=== PATIENT | female | born 1990 | race African-American/Black ===

== ENCOUNTER 2017-12-07 16:20 | Emergency (ER) | payer BC ==
[2017-12-07] MEDS ORDERED: Sodium Chloride 0.9% 10 ML Syringe FLUSH PRN (16:27)
[2017-12-07] MEDS ORDERED: Sodium Chloride 0.9% 2.5 ML Syringe FLUSH PRN (16:27)
[2017-12-07 17:26] LABS: CHLORIDE,CL 106 mmol/L (98-107); SODIUM,NA 140 mmol/L (136-145)
--- NOTE | 2017-12-07 18:46 | EDM.PDOC ---
<Kandis Wei - Last Filed: 12/07/17 19:25> ED HPI GENERAL MEDICAL PROBLEM - General Chief Complaint: Chest Pain Stated Complaint: CHEST PAIN Time Seen by Provider: 12/07/17 16:20 - History of Present Illness INITIAL COMMENTS - FREE TEXT/NARRATIVE: This is Dr. Wei dictating an addendum note as I have assumed care of this case at 7 PM. I was asked to follow-up at the CTA of the chest because the patient had a slightly positive d-dimer. That CTA is negative for any pulmonary disease including pulmonary embolism. I relayed this information to the patient and have reassured her and encouraged her for follow-up with a provider in the clinic for further care and evaluation if this pain continues or even involves. She states understanding. I will give her appropriate referrals. For the history and physical on this case please see above dictation for Dr. Adhikari - Related Data Allergies Allergy/AdvReac Type Severity Reaction Status Date / Time No Known Allergies Allergy Verified 12/07/17 16:32 Home Meds: Home Meds Non-Formulary Medication [NF Drug] 1 each PO DAILY 12/07/17 [History] ED ROS GENERAL - Review of Systems Review Of Systems: ROS reveals no pertinent complaints other than HPI. ED EXAM, GENERAL - Physical Exam Exam: See Below (See dictation) Course - Vital Signs Last Recorded V/S: Last Vital Signs Temp 97.7 F 12/07/17 19:40 Pulse 78 12/07/17 19:40 Resp 18 12/07/17 19:40 BP 136/89 12/07/17 19:40 Pulse Ox 98 12/07/17 19:40 - Orders/Labs/Meds Orders: Active Orders 24 hr Category Date Time Status EKG Documentation Completion [RC] STAT Care 12/07/17 16:27 Active Ang Chest [CT] Stat Exams 12/07/17 18:27 Taken Chest 1V Frontal [CR] Stat Exams 12/07/17 16:28 Taken Saline Lock Insert [OM.PC] Stat Oth 12/07/17 16:27 Ordered Labs: Laboratory Tests 12/07/17 12/07/17 12/07/17 Range/Units 16:42 16:42 16:42 WBC 6.94 (4.0-11.0) K/uL RBC 4.54 (4.30-5.90) M/uL Hgb 12.4 (12.0-16.0) g/dL Hct 37.0 (36.0-46.0) % MCV 81.5 (80.0-98.0) fL MCH 27.3 (27.0-32.0) pg MCHC 33.5 (31.0-37.0) g/dL RDW Std Deviation 41.1 (28.0-62.0) fl RDW Coeff of Dm 14 (11.0-15.0) % Plt Count 208 (150-400) K/uL MPV 10.10 (7.40-12.00) fL Neut % (Auto) 53.7 (48.0-80.0) % Lymph % (Auto) 40.6 H (16.0-40.0) % [place] % (Auto) 4.9 (0.0-15.0) % Eos % (Auto) 0.7 (0.0-7.0) % Baso % (Auto) 0.1 (0.0-1.5) % Neut # (Auto) 3.7 (1.4-5.7) K/uL Lymph # (Auto) 2.8 H (0.6-2.4) K/uL [place] # (Auto) 0.3 (0.0-0.8) K/uL Eos # (Auto) 0.1 (0.0-0.7) K/uL Baso # (Auto) 0.0 (0.0-0.1) K/uL Nucleated RBC % 0.0 /100WBC Nucleated RBCs # 0 K/uL D-Dimer, Quantitative 0.67 H (0.0-0.52) mg/LFEU Sodium 140 (136-145) mmol/L Potassium 3.7 (3.5-5.1) mmol/L Chloride 106 (98-107) mmol/L Carbon Dioxide 23.3 (21.0-32.0) mmol/L BUN 11 (7.0-18.0) mg/dL Creatinine 0.7 (0.6-1.0) mg/dL Est Cr Clr Drug Dosing 126.16 mL/min Estimated GFR (MDRD) > 60.0 ml/min Glucose 92 (74-106) mg/dL Calcium 9.0 (8.5-10.1) mg/dL Total Bilirubin 0.2 (0.2-1.0) mg/dL AST 23 (15-37) IU/L ALT 32 (14-63) IU/L Alkaline Phosphatase 73 (46-116) U/L Troponin I < 0.050 (0.000-0.056) ng/mL Total Protein 7.7 (6.4-8.2) g/dL Albumin 3.7 (3.4-5.0) g/dL Globulin 4.0 H (2.0-3.5) g/dL Albumin/Globulin Ratio 0.9 L (1.3-2.8) Lipase 185 (73-393) U/L Urine HCG, Qual (NEGATIVE) 12/07/17 Range/Units 16:42 WBC (4.0-11.0) K/uL RBC (4.30-5.90) M/uL Hgb (12.0-16.0) g/dL Hct (36.0-46.0) % MCV (80.0-98.0) fL MCH (27.0-32.0) pg MCHC (31.0-37.0) g/dL RDW Std Deviation (28.0-62.0) fl RDW Coeff of Dm (11.0-15.0) % Plt Count (150-400) K/uL MPV (7.40-12.00) fL Neut % (Auto) (48.0-80.0) % Lymph % (Auto) (16.0-40.0) % [place] % (Auto) (0.0-15.0) % Eos % (Auto) (0.0-7.0) % Baso % (Auto) (0.0-1.5) % Neut # (Auto) (1.4-5.7) K/uL Lymph # (Auto) (0.6-2.4) K/uL [place] # (Auto) (0.0-0.8) K/uL Eos # (Auto) (0.0-0.7) K/uL Baso # (Auto) (0.0-0.1) K/uL Nucleated RBC % /100WBC Nucleated RBCs # K/uL D-Dimer, Quantitative (0.0-0.52) mg/LFEU Sodium (136-145) mmol/L Potassium (3.5-5.1) mmol/L Chloride (98-107) mmol/L Carbon Dioxide (21.0-32.0) mmol/L BUN (7.0-18.0) mg/dL Creatinine (0.6-1.0) mg/dL Est Cr Clr Drug Dosing mL/min Estimated GFR (MDRD) ml/min Glucose (74-106) mg/dL Calcium (8.5-10.1) mg/dL Total Bilirubin (0.2-1.0) mg/dL AST (15-37) IU/L ALT (14-63) IU/L Alkaline Phosphatase (46-116) U/L Troponin I (0.000-0.056) ng/mL Total Protein (6.4-8.2) g/dL Albumin (3.4-5.0) g/dL Globulin (2.0-3.5) g/dL Albumin/Globulin Ratio (1.3-2.8) Lipase (73-393) U/L Urine HCG, Qual NEGATIVE (NEGATIVE) Meds: Medications Discontinued Medications Generic Name Dose Route Start Last Admin Trade Name Freq PRN Reason Stop Dose Admin Iopamidol 50 ml 12/07/17 18:56 12/07/17 18:57 Isovue-370 (76%) IV 12/07/17 18:57 50 ml ONETIME STA Administration Sodium Chloride 10 ml 12/07/17 16:27 Saline Flush FLUSH ASDIRECTED PRN Keep Vein Open Sodium Chloride 2.5 ml 12/07/17 16:27 Saline Flush FLUSH ASDIRECTED PRN Keep Vein Open Departure - Departure Time of Disposition: 19:28 Disposition: Still A Patient 30 Condition: Good Clinical Impression: Chest wall pain Instructions: Chest Wall Pain, [id number] Referrals: PCP,None [Primary Care Provider] - Forms: ED Department Discharge Additional Instructions: The following information is given to patients seen in the emergency department who are being discharged to home. This information is to outline your options for follow-up care. We provide all patients seen in our emergency department with a follow-up referral. The need for follow-up, as well as the timing and circumstances, are variable depending upon the specifics of your emergency department visit. If you don't have a primary care physician on staff, we will provide you with a referral. We always advise you to contact your personal physician following an emergency department visit to inform them of the circumstance of the visit and for follow-up with them and/or the need for any referrals to a consulting specialist. The emergency department will also refer you to a specialist when appropriate. This referral assures that you have the opportunity for followup care with a specialist. All of these measure are taken in an effort to provide you with optimal care, which includes your followup. Under all circumstances we always encourage you to contact your private physician who remains a resource for coordinating your care. When calling for followup care, please make the office aware that this follow-up is from your recent emergency room visit. If for any reason you are refused follow-up, please contact the emergency department at and ask to speak to the emergency department charge nurse. [facility] Primary care- Internal Medicine [place] [address] Rest and use alcq-sxa-chewchr medications such as ibuprofen or Tylenol for pain. Please call and schedule a follow-up clinic appointment with one of our providers for further care and evaluation and return to ER as needed and as discussed. - My Orders Last 24 Hours: My Active Orders 12/07/17 16:27 EKG Documentation Completion [RC] STAT Saline Lock Insert [OM.PC] Stat 12/07/17 16:28 Chest 1V Frontal [CR] Stat 12/07/17 18:27 Ang Chest [CT] Stat - Assessment/Plan Last 24 Hours: My Active Orders 12/07/17 16:27 EKG Documentation Completion [RC] STAT Saline Lock Insert [OM.PC] Stat 12/07/17 16:28 Chest 1V Frontal [CR] Stat 12/07/17 18:27 Ang Chest [CT] Stat <Cris Adhikari - Last Filed: 12/08/17 10:24> ED HPI GENERAL MEDICAL PROBLEM - General Source of Information: Reports: Patient History Limitations: Reports: No Limitations - History of Present Illness INITIAL COMMENTS - FREE TEXT/NARRATIVE: History of present illness: []Patient has had 3 days of pressure type chest pain with shortness of breath lasting all day. She denies any dizziness, sweatiness or lightheadedness. She has not had any recent illnesses denies any fever chills cough or abdominal pain. Patient does not have a history of heart disease and has not had this pain in the past. She does have GERD but states it has never been this bad. Review of systems: As per history of present illness and below otherwise all systems reviewed and negative. Past medical history: As per history of present illness and as reviewed below otherwise noncontributory. Surgical history: As per history of present illness and as reviewed below otherwise noncontributory. Social history: No reported history of drug or alcohol abuse. Family history: As per history of present illness and as reviewed below otherwise noncontributory. Physical exam: General: Well developed, well nourished in NAD HEENT: Atraumatic, normocephalic, pupils reactive, negative for conjunctival pallor or scleral icterus, mucous membranes moist, throat clear, neck supple, nontender, trachea midline. Lungs: Clear to auscultation, breath sounds equal bilaterally, chest nontender. Heart: S1S2, regular, negative for clicks, rubs, or JVD. Abdomen: Soft, nondistended, nontender. Negative for masses or hepatosplenomegaly. Negative for costovertebral tenderness. Pelvis: Stable nontender. Genitourinary: Deferred. Rectal: Deferred. Extremities: Atraumatic, negative for cords or calf pain. Neurovascular unremarkable. Neuro: Awake, alert, oriented. Cranial nerves II through XII unremarkable. Cerebellum unremarkable. Motor and sensory unremarkable throughout. Exam nonfocal. Diagnostics: []CBC normal, chemistry normal, troponin negative, test is negative, chest x-ray negative, d-dimer was positive therefore CT angiogram of the chest results to be checked by Dr. Wei Therapeutics: []IV, O2, monitor Impression: []Impression to be determined by Dr. Wei Plan: []Position to be determined by Dr. Wei after results Definitive disposition and diagnosis as appropriate pending reevaluation and review of above. Left Mid-Anterior Chest Pain Score (Numeric/FACES): 4 Past Medical History - Past Health History Medical/Surgical History: Denies Medical/Surgical History - Infectious Disease History Infectious Disease History: Reports: Chicken Pox Social & Family History - Family History Family Medical History: Noncontributory - Tobacco Use Smoking Status *Q: Never Smoker - Caffeine Use Caffeine Use: Reports: None - Recreational Drug Use Recreational Drug Use: No ED ROS GENERAL - Review of Systems Review Of Systems: See Below (See history of present illness) ED EXAM, GENERAL - Physical Exam Exam: See Below (See history of present illness) Departure - Departure Time of Disposition: 19:08 Condition: Good
[2017-12-07] MEDS ORDERED: Iopamidol 755 MG/ML 50 ML Bottle IV STA (18:56)
[2017-12-07 19:51] VITALS: BP 136/89
--- NOTE | 2017-12-08 13:04 | CR ---
SERVANDO.EXAM DATE: 12/07/17 PATIENT'S AGE: 27 Patient: SCOUT ROES Facility: [place], [place] Site . Site : 1990 Study: XRay Chest [id number]/8/2018 5:23:15 PM Ordering Physician: Onofre Lynch Final Report: Indication: Chest pain Technique: Chest 1 view Comparison: None Findings/Impression: Cardiovascular and mediastinum: Heart size and vasculature are normal in caliber and appearance. Mediastinum is within normal limits. Lungs and pleural space: Lungs are clear. No sign of infiltrate or mass. No sign of pleural effusion. No pneumothorax. Bones and soft tissues: No significant findings. Dictated by Ailyn Rios MD @ Dec 07 2017 6:01PM (Electronic Signature) Report Signed by Proxy. OTILIO
--- NOTE | 2017-12-08 13:05 | CT ---
EXAM DATE: 12/07/17 PATIENT'S AGE: 27 Patient: SCOUT ROSE Facility: [place], [place] Site . Site : 1990 Study: CT Chest Angio [id number] PE-12/07/2017 7:02:07 PM Ordering Physician: Onofre Lynch Final Report: INDICATION: Shortness of breath, chest pain TECHNIQUE: CT chest pulmonary PE protocol acquired with 50 cc Isovue 370 IV contrast. COMPARISON: None FINDINGS: Cardiovascular structures: Normal vascular enhancement of the pulmonary arteries , no sign of pulmonary embolism. Heart size is normal. No sign of aneurysm or dissection in the thoracic aorta. Mediastinum and peng: No mass or adenopathy. Lungs: Clear. Pleura and pericardium: No effusions. Chest wall and axilla: No mass or adenopathy. Upper abdomen: Unremarkable. Bones: No significant findings. IMPRESSION: Unremarkable chest CT. Specifically, no pulmonary embolism, aortic dissection, or pneumonia. Please note that all CT scans at this facility use dose modulation, iterative reconstruction, and/or weight-based dosing when appropriate to reduce radiation dose to as low as reasonably achievable. Dictated by Ailyn Rios MD @ Dec 07 2017 7:21PM (Electronic Signature) Report Signed by Proxy. OTILIO
== END 2017-12-07 19:40 | disposition still patient (30) ==
LOC: MW.ED 16:20
DX: R07.89 Other chest pain (principal); Z79.899 Other long term (current) drug therapy
CPT/HCPCS: 36415; 71045; 71275; 80053; 81025; 83690; 84484; 85025; 85379; 99285; Q9967; 99284

== ENCOUNTER 2020-11-11 00:23 | Inpatient (IN) | payer BC ==
[2020-11-11] MEDS ORDERED: Lidocaine 1% 50 ML MDV INJECT PRN (00:34)
[2020-11-11] MEDS ORDERED: Butorphanol 1 MG/ML SDV IVPUSH PRN (00:34)
[2020-11-11] MEDS ORDERED: Sodium Chloride 0.9% 2.5 ML Syringe FLUSH PRN (00:34)
[2020-11-11] MEDS ORDERED: Water For Irrigation,Sterile 1,000 ML Container IRR PRN (00:34)
[2020-11-11] MEDS ORDERED: Misoprostol 200 MCG Tab PO PRN (00:34)
[2020-11-11] MEDS ORDERED: Methylergonovine 0.2 MG/1 ML Amp IM PRN (00:34)
[2020-11-11] MEDS ORDERED: Sodium Chloride 0.9% 10 ML SDV IV PRN (00:34)
[2020-11-11] MEDS ORDERED: Tranexamic Acid 1,000 MG in Sodium Chloride 0.9% 100 ML IV PRN (00:34)
[2020-11-11] MEDS ORDERED: Sodium Chloride 0.9% 10 ML Syringe FLUSH PRN (00:34)
[2020-11-11] MEDS ORDERED: Nalbuphine 10 MG/1 ML Vial IVPUSH PRN (00:34)
[2020-11-11] MEDS ORDERED: Carboprost Tromethamine 250 MCG/1 ML Amp IM PRN (00:34)
[2020-11-11] MEDS ORDERED: Sodium Chloride 0.9% 100 ML ONE (00:39)
[2020-11-11] MEDS ORDERED: Ampicillin 2 GM AdvVial IV ONE (00:39)
[2020-11-11] MEDS ORDERED: Oxytocin/0.9 % Sodium Chloride 30 UNIT/500 ML BAG IV SCH (00:45)
[2020-11-11] MEDS ORDERED: Lactated Ringers 1,000 ML IV SCH (00:45)
[2020-11-11] MEDS ORDERED: Lidocaine 1% 50 ML MDV ONE (00:48)
[2020-11-11] MEDS ORDERED: Oxytocin/0.9 % Sodium Chloride 30 UNIT/500 ML BAG ONE (00:54)
[2020-11-11] MEDS ORDERED: Benzocaine/Menthol 20%-0.5% Spray 78 GM Cannister TOP PRN (01:35)
[2020-11-11] MEDS ORDERED: Ibuprofen 400 MG Tab PO PRN (01:35)
[2020-11-11] MEDS ORDERED: Acetaminophen 500 MG Tab PO PRN ×2 (01:35)
[2020-11-11] MEDS ORDERED: Docusate Sodium 100 MG Cap PO PRN (01:35)
[2020-11-11] MEDS ORDERED: Lanolin 100% Cream 7 GM Tube TOP PRN (01:35)
[2020-11-11] MEDS ORDERED: Bisacodyl 10 MG Supp RECTAL PRN (01:35)
[2020-11-11] MEDS ORDERED: oxyCODONE 5 MG Tab PO PRN (01:35)
[2020-11-11] MEDS ORDERED: Witch Hazel Medicated Pads 40/Jar TOP PRN (01:35)
[2020-11-11] MEDS: Ibuprofen 800 MG Tab PO PRN ×2 (01:58→14:10)
--- NOTE | 2020-11-11 02:02 | PCM.OPNOTE ---
- General Post-Op/Procedure Note Date of Surgery/Procedure: 11/11/20 Operative Procedure(s): /1st MLL repaired Findings: Viable male APGARs 8, 9 weight pending. spontaneous delivery intact placenta with 3V cord Pre Op Diagnosis: 39/3 week IUP. Active labor. GBBS + Post-Op Diagnosis: Same Anesthesia Technique: Local (Pudendal) Primary Surgeon: Ayse Vang EBL in mLs: 250 Complications: none known Condition: Good
--- NOTE | 2020-11-11 09:13 | OR ---
SURGEON: Ayse Vang M.D. DATE OF PROCEDURE: 11/11/2020 PREOPERATIVE DIAGNOSES: 1. A 39 and 3 week intrauterine . 2. Active labor. 3. Group B beta strep positive. POSTOPERATIVE DIAGNOSES: 1. A 39 and 3 week intrauterine . 2. Active labor. 3. Group B beta strep positive. PROCEDURE: Spontaneous vaginal delivery, first-degree midline laceration repaired. PRIMARY SURGEON: Ayse Vang M.D. ANESTHESIA: Pudendal. ESTIMATED BLOOD LOSS: 250 mL. COMPLICATIONS: None known. FINDINGS: Viable male. score 8 at one minute and 9 at five minutes. Weight is pending. Spontaneous delivery of intact placenta, 3-vessel cord. DISPOSITION: Infant to Nursery, mom in LDRP. DESCRIPTION OF PROCEDURE: Felipa is a 30-year-old, G2, P1, at 39 and 3 weeks' gestational age, presented acutely on the signal intelligence/electronic warfare of 11/11/2020 with contractions for the last 2 hours, became much more intense in nature. On initial examination, heart tones are category 1. She is found to be 8 cm, feeling the urge to push. I was called and updated of the patient status. Upon my arrival, the patient had progressed to complete. She was requesting pain medication. Therefore, she was placed in modified dorsal lithotomy position. After being prepped and draped in usual aseptic manner, a pudendal block was placed. 5 mL of 1% lidocaine was introduced along the left pudendal notch region, followed by the right, and then midline perineal, approximately 3 mL of 1% lidocaine was introduced. At this point, the patient was feeling the urge to push. She was found to be complete, 100% effaced, +2 station, and had spontaneous rupture of membranes at this time interval with clear fluid noted. She was receiving a dose of IV ampicillin at the time this happened. The patient began pushing efforts, pushed adequately to a +4 station, was able to deliver 's head atraumatically spontaneously, followed by anterior shoulder, posterior shoulder, and remainder of the body without difficulty. The infant's oropharynx and nares were bulb suctioned. was handed off to his mother with attending nursing staff at her side. After a delay, cord was clamped x2 and cut. Cord arterial, cord venous, cord blood sampling obtained. Light pressure was applied while the placenta was delivered spontaneously intact. Vigorous fundal massage was then applied while 30 units of Pitocin was delivered in 500 mL of fluid. Upon inspection of cervix, vaginal side yousif, and perineum, there was found to be a first-degree midline laceration. This was repaired using 3-0 Vicryl in the usual fashion. Uterus remained firm. Hemostasis evident. Sponge, instrument count, and needle count were correct. The patient remained in LDRP, to [facility]. KONSTANTIN / JEREMIAH /[id number]
[2020-11-11 16:46] VITALS: BP 122/87; PULSE 93
--- NOTE | 2020-11-11 17:04 | PCM.PNPP ---
- General Info Date of Service: 11/11/20 Subjective Update: Patient seen at bedside , she denies any complains. she is ambulating , voiding and tolerating regular diet . BP with mild range elevation after delivery but normal this noon. She denies headache RUQ pain and BV Patient transferred to [place] for care Functional Status: Reports: Pain Controlled, Tolerating Diet, Ambulating, Urinating - Review of Systems General: Reports: No Symptoms HEENT: Reports: No Symptoms Pulmonary: Reports: No Symptoms Cardiovascular: Reports: No Symptoms Gastrointestinal: Reports: No Symptoms Genitourinary: Reports: No Symptoms Musculoskeletal: Reports: No Symptoms Skin: Reports: No Symptoms Neurological: Reports: No Symptoms Psychiatric: Reports: No Symptoms - General Info Date of Service: 11/11/20 - Patient Data Vital Signs - Most Recent: Last Vital Signs Temp 36.4 C 11/11/20 16:45 Pulse 93 11/11/20 16:45 Resp 16 11/11/20 16:45 BP 122/87 11/11/20 16:45 Pulse Ox 99 11/11/20 16:45 Weight - Most Recent: 92.079 kg Lab Results - Last 24 Hours: Laboratory Results - last 24 hr 11/11/20 11/11/20 11/11/20 Range/Units 00:25 01:03 01:30 WBC 8.13 (4.0-11.0) K/uL RBC 4.05 L (4.30-5.90) M/uL Hgb 12.1 (12.0-16.0) g/dL Hct 36.0 (36.0-46.0) % MCV 88.9 (80.0-98.0) fL MCH 29.9 (27.0-32.0) pg MCHC 33.6 (31.0-37.0) g/dL RDW Std Deviation 49.3 (28.0-62.0) fl RDW Coeff of Dm 15 (11.0-15.0) % Plt Count 144 L (150-400) K/uL MPV 10.20 (7.40-12.00) fL Neut % (Auto) (48.0-80.0) % Lymph % (Auto) (16.0-40.0) % [place] % (Auto) (0.0-15.0) % Eos % (Auto) (0.0-7.0) % Baso % (Auto) (0.0-1.5) % Neut # (Auto) (1.4-5.7) K/uL Lymph # (Auto) (0.6-2.4) K/uL [place] # (Auto) (0.0-0.8) K/uL Eos # (Auto) (0.0-0.7) K/uL Baso # (Auto) (0.0-0.1) K/uL Nucleated RBC % /100WBC Nucleated RBCs # K/uL Cord ABG pH 7.213 (7.18-7.38) Cord ABG Base Excess -3 (-10--2) Cord VBG pH 7.353 (7.25-7.45) Cord VBG Base Excess -2 (-10--2) SARS-CoV-2 RNA (CAPRI) NEGATIVE (NEGATIVE) Blood Type Antibody Screen 11/11/20 11/11/20 Range/Units 01:30 16:39 WBC 11.81 H (4.0-11.0) K/uL RBC 3.95 L (4.30-5.90) M/uL Hgb 11.7 L (12.0-16.0) g/dL Hct 35.2 L (36.0-46.0) % MCV 89.1 (80.0-98.0) fL MCH 29.6 (27.0-32.0) pg MCHC 33.2 (31.0-37.0) g/dL RDW Std Deviation 50.6 (28.0-62.0) fl RDW Coeff of Dm 16 H (11.0-15.0) % Plt Count 161 (150-400) K/uL MPV 10.80 (7.40-12.00) fL Neut % (Auto) 80.6 H (48.0-80.0) % Lymph % (Auto) 14.1 L (16.0-40.0) % [place] % (Auto) 5.0 (0.0-15.0) % Eos % (Auto) 0.3 (0.0-7.0) % Baso % (Auto) 0.0 (0.0-1.5) % Neut # (Auto) 9.5 H (1.4-5.7) K/uL Lymph # (Auto) 1.7 (0.6-2.4) K/uL [place] # (Auto) 0.6 (0.0-0.8) K/uL Eos # (Auto) 0.0 (0.0-0.7) K/uL Baso # (Auto) 0.0 (0.0-0.1) K/uL Nucleated RBC % 0.0 /100WBC Nucleated RBCs # 0 K/uL Cord ABG pH (7.18-7.38) Cord ABG Base Excess (-10--2) Cord VBG pH (7.25-7.45) Cord VBG Base Excess (-10--2) SARS-CoV-2 RNA (CAPRI) (NEGATIVE) Blood Type B POSITIVE Antibody Screen NEGATIVE Med Orders - Current: Current Medications Acetaminophen (Tylenol Extra Strength) 500 mg PO Q4H PRN PRN Reason: Pain Acetaminophen (Tylenol Extra Strength) 1,000 mg PO Q4H PRN PRN Reason: Pain Benzocaine/Menthol (Dermoplast Pain Relief 20%-0.5% Cyril) 78 gm TOP ASDIRECTED PRN PRN Reason: Perineal Comfort Measure Last Admin: 11/11/20 02:04 Dose: 1 can Documented by: Bisacodyl (Dulcolax) 10 mg RECTAL ONETIME PRN PRN Reason: Constipation Butorphanol Tartrate (Stadol) 1 mg IVPUSH Q1H PRN PRN Reason: Pain Carboprost Tromethamine (Hemabate Ds) 250 mcg IM ASDIRECTED PRN PRN Reason: Post Hemorrhage Docusate Sodium (Colace) 100 mg PO BID PRN PRN Reason: Constipation Last Admin: 11/11/20 02:00 Dose: 100 mg Documented by: Emollient Ointment (Lansinoh Hpa) 0 gm TOP ASDIRECTED PRN PRN Reason: Sore Nipples Oxytocin/Sodium Chloride (Oxytocin 30 Unit/500 Ml-Ns) 30 unit in 500 mls @ 999 mls/hr IV TITRATE DEE Last Admin: 11/11/20 00:23 Dose: 999 mls/hr Documented by: Tranexamic Acid 1,000 mg/ (Sodium Chloride) 110 mls @ 660 mls/hr IV ONETIME PRN PRN Reason: Bleeding Lactated Ringer's (Ringers, Lactated) 1,000 mls @ 150 mls/hr IV ASDIRECTED DEE Last Admin: 11/11/20 00:30 Dose: 999 mls/hr Documented by: Ibuprofen (Motrin) 400 mg PO Q4H PRN PRN Reason: Pain Ibuprofen (Motrin) 800 mg PO Q6H PRN PRN Reason: Pain Last Admin: 11/11/20 14:10 Dose: 800 mg Documented by: Lidocaine HCl (Xylocaine 1%) 50 ml INJECT ONETIME PRN PRN Reason: Laceration repair Methylergonovine Maleate (Methergine) 0.2 mg IM ASDIRECTED PRN PRN Reason: Post Hemorrhage Misoprostol (Cytotec) 200 mcg PO ONETIME PRN PRN Reason: Post Hemorrhage Nalbuphine HCl (Nubain) 10 mg IVPUSH Q1H PRN PRN Reason: Pain (severe 7-10) Oxycodone HCl (Oxycodone) 5 mg PO Q2H PRN PRN Reason: Pain Last Admin: 11/11/20 02:00 Dose: 5 mg Documented by: Sodium Chloride (Saline Flush) 10 ml FLUSH ASDIRECTED PRN PRN Reason: Keep Vein Open Sodium Chloride (Saline Flush) 2.5 ml FLUSH ASDIRECTED PRN PRN Reason: Keep Vein Open Sodium Chloride (Normal Saline) 10 ml IV ASDIRECTED PRN PRN Reason: IV Use Sterile Water (Sterile Water For Irrigation) 1,000 ml IRR ASDIRECTED PRN PRN Reason: delivery Witch [place] (Tucks) 1 pad TOP ASDIRECTED PRN PRN Reason: comfort care Last Admin: 11/11/20 02:04 Dose: 1 tub Documented by: Discontinued Medications Ampicillin Sodium (Ampicillin) Confirm Administered Dose 2 gm IV .STK-MED ONE Stop: 11/11/20 00:40 Last Admin: 11/11/20 00:41 Dose: 2 gm Documented by: Sodium Chloride (Normal Saline) Confirm Administered Dose 100 mls @ as directed .ROUTE .STK-MED ONE Stop: 11/11/20 00:40 Oxytocin/Sodium Chloride (Oxytocin 30 Unit/500 Ml-Ns) Confirm Administered Dose 30 unit in 500 mls @ as directed .ROUTE .STK-MED ONE Stop: 11/11/20 00:55 Lidocaine HCl (Xylocaine 1%) Confirm Administered Dose 50 ml .ROUTE .[employer] ONE Stop: 11/11/20 00:49 - Infant Interaction Support Person: Significant Other - Recovery Exam Fundal Tone: Firm Fundal Level: 1 Fingerbreadths Below Umbilicus Fundal Placement: Midline Lochia Amount: Scant, Small Lochia Color: Rubra/Red Perineum Description: Other (see below) Other Perinuem Description: 1st degree laceration with repair. Episiotomy/Laceration: Approximated Bladder Status: Voiding Urinary Elimination: Voided - Exam General: Alert HEENT: Pupils Equal Neck: Supple Lungs: Clear to Auscultation Cardiovascular: Regular Rate, Regular Rhythm GI/Abdominal Exam: Normal Bowel Sounds Psy/Mental Status: Alert - Problem List & Annotations (1) Vaginal delivery SNOMED Code(s): 596656088 Code(s): O80 - ENCOUNTER FOR FULL-TERM UNCOMPLICATED DELIVERY Status: Acute Current Visit: Yes (2) Gestational hypertension SNOMED Code(s): 944386305 Code(s): O13.9 - GESTATIONAL HTN W/O SIGNIFICANT PROTEINURIA, UNSP TRIMESTER Status: Acute Current Visit: Yes - Problem List Review Problem List Initiated/Reviewed/Updated: Yes - Assessment Assessment:: 30yo P2 s/p PPDO , transferred for higher level care Gestational hypertension asymptomatic , BP normal - Plan Plan:: Discharge home CMP and Uric acid Preclampsia precautions Follow up BP check in 1 week
[2020-11-11 17:42] LABS: BLOOD UREA NITROGEN,BUN 8 mg/dL (7.0-18.0); CARBON DIOXIDE,CO2 24.2 mmol/L (21.0-32.0); CHLORIDE,CL 104 mmol/L (98-107); GLUCOSE RANDOM 103 mg/dL (74-106); POTASSIUM,K 3.7 mmol/L (3.5-5.1); SODIUM,NA 139 mmol/L (136-145)
== END 2020-11-11 18:39 | disposition home or self-care (01) | DRG 560 ==
LOC: MW.OBCHECK 00:23 → MW.OB 00:24 → MW.OBCHECK 00:35 → OBSVTOIN 01:03 → MW.OB 04:00
PROVIDERS: ADMIT Obstetrics & Gynecology; ATTEND Obstetrics & Gynecology
PROC: 10E0XZZ Delivery of Products of Conception, External Approach (ICD-10-PCS; principal; 2020-11-11)
PROC: 0HQ9XZZ Repair Perineum Skin, External Approach (ICD-10-PCS; 2020-11-11)
PROC: 3E0R3BZ Introduction of Anesthetic Agent into Spinal Canal, Percutaneous Approach (ICD-10-PCS; 2020-11-11)
DX: O13.4 Gestational [pregnancy-induced] hypertension without significant proteinuria, complicating childbirth (principal); Z3A.39 39 weeks gestation of pregnancy; Z37.0 Single live birth; O99.824 Streptococcus B carrier state complicating childbirth; O70.0 First degree perineal laceration during delivery; Z20.822 Contact with and (suspected) exposure to COVID-19
CPT/HCPCS: 36415; 59025; 80053; 82803; 84550; 85025; 85027; 86592; 86850; 86900; 86901; A9270-GY; J0290; J2001; J2590; J7120; U0002

== ENCOUNTER 2022-05-20 03:44 | Inpatient (IN) | payer MEDICAID ==
[2022-05-20] MEDS ORDERED: Sodium Chloride 0.9% 2.5 ML Syringe FLUSH PRN (04:06)
[2022-05-20] MEDS ORDERED: Carboprost Tromethamine 250 MCG/1 ML Amp IM PRN (04:06)
[2022-05-20] MEDS ORDERED: Butorphanol 1 MG/ML SDV IVPUSH PRN (04:06)
[2022-05-20] MEDS ORDERED: Lidocaine 1% 50 ML MDV INJECT PRN (04:06)
[2022-05-20] MEDS ORDERED: Methylergonovine 0.2 MG/1 ML Amp IM PRN (04:06)
[2022-05-20] MEDS ORDERED: Sodium Chloride 0.9% 20 ML SDV IV PRN (04:06)
[2022-05-20] MEDS ORDERED: Misoprostol 200 MCG Tab PO PRN (04:06)
[2022-05-20] MEDS ORDERED: Sodium Chloride 0.9% 10 ML Syringe FLUSH PRN (04:06)
[2022-05-20] MEDS ORDERED: Tranexamic Acid 1,000 MG in Sodium Chloride 0.9% 100 ML IV PRN (04:06)
[2022-05-20] MEDS ORDERED: Ondansetron 4 MG/2 ML SDV IVPUSH PRN (04:06)
[2022-05-20] MEDS ORDERED: Water For Irrigation,Sterile 1,000 ML Container IRR PRN (04:06)
[2022-05-20] MEDS ORDERED: Oxytocin/0.9 % Sodium Chloride 30 UNIT/500 ML BAG ONE (04:10)
[2022-05-20] MEDS ORDERED: Oxytocin/0.9 % Sodium Chloride 30 UNIT/500 ML BAG IV SCH (04:15)
[2022-05-20] MEDS ORDERED: Lactated Ringers 1,000 ML IV SCH (04:15)
[2022-05-20] MEDS ORDERED: Ampicillin 2 GM in Sodium Chloride 0.9% 100 ML IV ONE (04:21)
[2022-05-20] MEDS ORDERED: Benzocaine/Menthol 20%-0.5% Spray 78 GM Cannister TOP PRN (05:13)
[2022-05-20] MEDS ORDERED: Witch Hazel Medicated Pads 40/Jar TOP PRN (05:13)
[2022-05-20] MEDS ORDERED: oxyCODONE 5 MG Tab PO PRN (05:13)
[2022-05-20] MEDS ORDERED: Bisacodyl 10 MG Supp RECTAL PRN (05:13)
[2022-05-20] MEDS ORDERED: Lanolin 100% Cream 7 GM Tube TOP PRN (05:13)
[2022-05-20] MEDS ORDERED: Ketorolac 30 MG/ML SDV IVPUSH ONE ×2 (05:23→05:25)
[2022-05-20] MEDS: Ibuprofen 800 MG Tab PO SCH ×5 (13:24→21:19)
[2022-05-20] MEDS: Acetaminophen 500 MG Tab PO SCH ×4 (13:26→18:00)
[2022-05-21] MEDS: Acetaminophen 500 MG Tab PO SCH ×3 (02:17→14:46)
[2022-05-21] MEDS: Ibuprofen 800 MG Tab PO SCH ×3 (07:34→22:45)
[2022-05-21] MEDS: Docusate Sodium 100 MG Cap PO PRN ×2 (08:53→22:45)
[2022-05-22 08:03] VITALS: PULSE 81
[2022-05-22 09:13] VITALS: BP 131/77
== END 2022-05-22 11:55 | disposition home or self-care (01) | DRG 807 ==
LOC: MW.OBCHECK 03:44 → MW.OB 03:48 → MW.OBCHECK 04:06 → OBSVTOIN 04:43 → MW.OB 08:57
PROVIDERS: ADMIT Obstetrics & Gynecology; ATTEND Obstetrics & Gynecology
PROC: 10E0XZZ Delivery of Products of Conception, External Approach (ICD-10-PCS; principal; 2022-05-20)
DX: O42.02 Full-term premature rupture of membranes, onset of labor within 24 hours of rupture (principal); Z37.0 Single live birth; O99.824 Streptococcus B carrier state complicating childbirth; Z3A.40 40 weeks gestation of pregnancy; O99.02 Anemia complicating childbirth; D64.9 Anemia, unspecified; Z20.822 Contact with and (suspected) exposure to COVID-19
CPT/HCPCS: 36415; 59025; 59409; 84112; 85014; 85018; 85027; 86592; 86850; 86900; 86901; A9270-GY; J1885; J2001; J2590; U0002